=== PATIENT | male | born 1930 | race Caucasian/White ===

== ENCOUNTER 2017-04-03 13:27 | Observation (INO) | payer MEDICARE, OTHER ==
[2017-04-03 13:28] VITALS: BMI 26.6
--- NOTE | 2017-04-03 14:10 | ED PDOC ---
HPI: Abdomen Time Seen by Provider: 04/03/17 13:58 Chief Complaint (Nursing): Abnormal Labs Chief Complaint (Provider): Anemia History Per: Patient Additional Complaint(s): Rcik Upton is an 86 year old male, whose past medical history includes seizure disorder, hypertension, hyperlipidemia, anemia, GI bleed, ischemic heart disease, CVA, pacemaler, Type 2 diabetes, GERD, and Alzheimer's disease, who presents to the emergency department sent from group home for abnormal lab values today. Patient's blood work from earlier today showed patient is anemic, Hgb was 6.2. Sent with RX for transfusion of 3 units. HPI and ROS are limited due to patient's dementia. PMD: Dr. Jan Duenas Past Medical History Reviewed: Historical Data, Nursing Documentation, Vital Signs Vital Signs: Last Vital Signs Temp 98.4 F 04/03/17 14:02 Pulse 61 04/03/17 14:02 Resp 18 04/03/17 14:02 BP 122/64 04/03/17 14:02 Pulse Ox 99 04/03/17 15:26 - Medical History PMH: Anemia, CHF, COPD, Dementia, Depression, Diabetes, GERD, HTN, Hypercholesterolemia, Seizures, TIA - Surgical History Surgical History: Coronary Stent, Pacemaker - Family History Family History: States: Unknown Family Hx - Living Arrangements Living Arrangements: Group Home/Assist Lv[facility] - Immunization History Hx Tetanus Toxoid Vaccination: No (unknown) Hx Influenza Vaccination: No Hx Pneumococcal Vaccination: Yes - Home Medications Home Medications: Ambulatory Orders Medication Instructions Recorded Acetaminophen [Tylenol 325mg tab] 650 mg PO Q4H PRN 04/03/17 Acetaminophen [Tylenol 325mg tab] 650 mg PO Q4H PRN 04/03/17 Albuterol/Ipratropium [Duoneb 3 3 ml IH Q6H PRN 04/03/17 mg/0.5 mg (3 ml) UD] Atorvastatin [Lipitor] 80 mg PO HS 04/03/17 Carvedilol [Coreg] 25 mg PO Q12H 04/03/17 Cholecalciferol 400 Intl Units 400 unit PO DAILY 04/03/17 [Vitamin D 400 Intl Units Tab] Ciclopirox [Penlac] 1 appl TOP BID 04/03/17 Clopidogrel [Plavix] 75 mg PO DAILY 04/03/17 Cyproheptadine [Periactin] 8 mg PO TID 04/03/17 Dicyclomine [Bentyl] 10 mg PO DAILY 04/03/17 Enalapril Maleate [Vasotec] 20 mg PO Q12H 04/03/17 Ergocalciferol (Vitamin D2) 50,000 unit PO WE 04/03/17 [Vitamin D2] Ferrous Sulfate [Feosol] 325 mg PO DAILY 04/03/17 Insulin Aspart, Recombinant 1 - 6 unit SC ACHS 04/03/17 [Novolog] Lisinopril [Zestril] 10 mg PO DAILY 04/03/17 Mag Hydrox/Aluminum Hyd/Simeth 30 ml PO Q4H PRN 04/03/17 [Maalox Advanced Suspension] Magnesium Hydroxide [Milk Of 30 ml PO DAILY PRN 04/03/17 Magnesia] Mirtazapine [Remeron] 15 mg PO HS 04/03/17 Nitroglycerin [Nitrostat] 0.4 mg SL Q5MIN PRN 04/03/17 Pantoprazole [Protonix Inj] 40 mg IV DAILY 04/03/17 metFORMIN [glucOPHAGE] 250 mg PO BID 04/03/17 - Allergies Allergies/Adverse Reactions: Allergies Allergy/AdvReac Type Severity Reaction Status Date / Time No Known Allergies Allergy Verified 09/13/15 11:49 Review of Systems ROS Statement: Except As Marked, All Systems Reviewed And Found Negative Review Of Systems: ROS cannot be obtained secondary to pt's inabilty to answer questions. Physical Exam - Reviewed Nursing Documentation Reviewed: Yes Vital Signs Reviewed: Yes - Physical Exam Appears: Positive for: Non-toxic, No Acute Distress Head Exam: Positive for: ATRAUMATIC, NORMAL INSPECTION, NORMOCEPHALIC Skin: Positive for: Normal Color, Warm, DRY Eye Exam: Positive for: EOMI, Normal appearance, PERRL ENT: Positive for: Normal ENT Inspection Neck: Positive for: Normal, Painless ROM Cardiovascular/Chest: Positive for: Regular Rate, Rhythm Respiratory: Positive for: CNT, Normal Breath Sounds Gastrointestinal/Abdominal: Positive for: Bowel Sounds, Soft. Negative for: Tenderness Back: Positive for: Normal Inspection Rectal: Positive for: Stool Is Heme: (+) Extremity: Positive for: Normal ROM Neurologic/Psych: Positive for: Alert, Oriented - Laboratory Results Result Diagrams: 04/03/17 14:32 04/03/17 14:32 - ECG O2 Sat by Pulse Oximetry: 99 Medical Decision Making Medical Decision Making: IV access established and diagnostics ordered pt cam at bedside. Vitals stable on mill laborer. Orders written to transfuse Pt, aftr hegb resulted 6.6. Case discussed with LEONIDAS Krishnan from [facility] who agrees with plan at this time. Advised tele-obs Disposition - Clinical Impression Clinical Impression: Anemia - Patient ED Disposition Is Patient to be Admitted: Yes - Disposition Disposition Time: 15:33 Condition: STABLE - POA Present On Arrival: Blood Incompatibility
[2017-04-03 14:55] LABS: BASO % 0.4 % (0.0-2.0); EOS % 0.6 % (0.0-4.0); HEMOGLOBIN 6.6 g/dL (12.0-18.0); LYMPH # 0.9 K/uL (1.0-4.3); LYMPH % 14.6 % (20.0-40.0); MEAN CELL VOLUME 94.9 fl (80.0-94.0); MEAN CORPUSCULAR HEMOGLOBIN 30.4 pg (27.0-31.0); MEAN PLATELET VOLUME 9.4 fl (7.2-11.7); MONO # 0.3 K/uL (0.0-0.8); MONO % 5.2 % (0.0-10.0); NEUT % 79.2 % (50.0-75.0); RBC 2.18 Mil/uL (4.40-5.90); RED CELL DISTRIBUTION WIDTH 16.8 % (11.5-14.5); WHITE BLOOD COUNT 6.4 K/uL (4.8-10.8)
[2017-04-03 15:16] LABS: INR 1.1 (0.9-1.2); PARTIAL THROMBOPLASTIN TIME 34.3 Seconds (25.6-37.1); PROTHROMBIN TIME 12.8 Seconds (9.8-13.1)
[2017-04-03 15:28] LABS: ALB/GLOB RATIO 0.9 (1.0-2.1); ALBUMIN 2.3 g/dL (3.5-5.0); ALT/SGPT 30 U/L (21-72); AMYLASE 63 U/L (30-110); AST/SGOT 21 U/L (17-59); BLOOD UREA NITROGEN 44 mg/dl (9-20); CALCIUM 8.1 mg/dL (8.4-10.2); GFR AFRICAN-AMERICAN > 60; GFR NON-AFRICAN AMERICAN > 60; LIPASE 32 U/L (23-300)
[2017-04-03] MEDS ORDERED: Magnesium Hydroxide Susp 30 ml UD PO PRN (16:52)
[2017-04-03] MEDS ORDERED: Alum-Mag Hydrox-Simethicone Susp (30 mL) PO PRN (16:52)
[2017-04-03] MEDS ORDERED: Albuterol-Ipratrop 3 mg / 0.5 (3 ml) UD IH PRN (16:52)
[2017-04-03] MEDS ORDERED: CICLOPIROX APPL TOP SCH (17:00)
--- NOTE | 2017-04-03 18:56 | CARD ---
APPROVED REPORT EKG Measurement Heart [id number] <Conclusion> AV dual-paced rhythm Abnormal ECG
[2017-04-03] MEDS: Insulin Regular 100 units/ml SC SCH (22:09)
[2017-04-04] MEDS ORDERED: Cholecalciferol 400 Intl Units Tab PO SCH (09:00)
[2017-04-04] MEDS: Insulin Regular 100 units/ml SC SCH (09:09)
--- NOTE | 2017-04-04 10:12 | CP.PCM.HP ---
History of Present Illness - History of Present Illness History of Present Illness: pt admitted for severe anemia, hgb 6.6. pt was guiac positive in er and has h/ o same. pt is being worked up for this in [facility]. pt is non verbal but makes eye contact w/ this provider. per daughter pt states pt has been having productive cough and is requesting cxr. Present on Admission - Present on Admission Any Indicators Present on Admission: Yes History of Uncontrolled Diabetes: Yes Review of Systems - Gastrointestinal Gastrointestinal: As Per HPI, Hematochezia Past Patient History - Tetanus Immunizations Tetanus Immunization: Unknown - Past Medical History & Family History Past Medical History?: Yes - Past Social History Smoking Status: Never Smoked - CARDIAC Hx Cardiac Disorders: Yes Hx Hypertension: Yes Hx Pacemaker: Yes - PULMONARY Hx Respiratory Disorders: Yes Hx Chronic Obstructive Pulmonary Disease (COPD): Yes - NEUROLOGICAL Hx Neurological Disorder: Yes Hx Dementia: Yes Hx Seizures: Yes Hx Transient Ischemic Attacks (TIA): Yes - HEENT Hx HEENT Problems: No - RENAL Hx Chronic Kidney Disease: No - ENDOCRINE/METABOLIC Hx Endocrine Disorders: Yes Hx Diabetes Mellitus Type 2: Yes - HEMATOLOGICAL/ONCOLOGICAL Hx Blood Disorders: Yes Hx Anemia: Yes - INTEGUMENTARY Hx Dermatological Problems: Yes (SKIN GROWTH TO LEFT LOWER LIP) - MUSCULOSKELETAL/RHEUMATOLOGICAL Hx Musculoskeletal Disorders: Yes Hx Falls: Yes - GASTROINTESTINAL Hx Gastrointestinal Disorders: Yes Hx Gastroesophageal Reflux: Yes - GENITOURINARY/GYNECOLOGICAL Hx Genitourinary Disorders: Yes Hx Prostate Problems: Yes - PSYCHIATRIC Hx Psychophysiologic Disorder: Yes Hx Depression: Yes - SURGICAL HISTORY Hx Surgeries: Yes Hx Coronary Stent: Yes - ANESTHESIA Hx Anesthesia: Yes Hx Anesthesia Reactions: No Hx Malignant Hyperthermia: No Meds Allergies/Adverse Reactions: Allergies Allergy/AdvReac Type Severity Reaction Status Date / Time No Known Allergies Allergy Verified 09/13/15 11:49 Physical Exam - Constitutional Appears: Well, Non-toxic, No Acute Distress, Chronically Ill - Head Exam Head Exam: ATRAUMATIC, NORMAL INSPECTION, NORMOCEPHALIC - Eye Exam Eye Exam: EOMI, Normal appearance, PERRL Pupil Exam: NORMAL ACCOMODATION, PERRL - ENT Exam ENT Exam: Mucous Membranes Moist, Normal Exam - Neck Exam Neck exam: Positive for: Normal Inspection - Respiratory Exam Respiratory Exam: Clear to Auscultation Bilateral, NORMAL BREATHING PATTERN - Cardiovascular Exam Cardiovascular Exam: REGULAR RHYTHM, RRR, +S1, +S2 - GI/Abdominal Exam GI & Abdominal Exam: Normal Bowel Sounds, Soft. absent: Tenderness - Extremities Exam Extremities exam: Positive for: full ROM, normal capillary refill, normal inspection, pedal pulses present - Back Exam Back exam: NORMAL INSPECTION - Neurological Exam Neurological exam: Abnormal Gait, Alert, Altered, CN II-XII Intact, Reflexes Normal - Psychiatric Exam Psychiatric exam: Normal Affect, Normal Mood - Skin Skin Exam: Dry, Intact, Normal Color, Warm Results - Vital Signs Recent Vital Signs: Last Vital Signs Temp 98.5 F 04/04/17 08:00 Pulse 61 04/04/17 09:04 Resp 20 04/04/17 08:00 BP 177/79 H 04/04/17 09:04 Pulse Ox 98 04/04/17 08:00 - Labs Result Diagrams: 04/03/17 14:32 04/03/17 14:32 Labs: Laboratory Results - last 24 hr 04/03/17 04/04/17 21:54 05:38 POC Glucose (mg/dL) 139 H 106 Assessment & Plan (1) DVT prophylaxis Assessment and Plan: scd and ae hose Status: Acute (2) Anemia Assessment and Plan: 3 units prbc r/t gi bleed cbc 12p Status: Acute (3) Acute gastrointestinal hemorrhage Assessment and Plan: pt on ppi, further work up and gi f/u at [facility] hold palvix Status: Acute Decision To Admit - Pt Status Changed To: Hospital Disposition Of: Observation - . Bed Request Type: Telemetry Admitting Physician: Rai Valerio
[2017-04-04] MEDS ORDERED: Sodium Chloride 3% for Inhalation 4 ML VIAL.NEB IH PRN (11:01)
[2017-04-04 13:35] LABS: BASO % 0.3 % (0.0-2.0); EOS # 0.1 K/uL (0.0-0.7); EOS % 1.2 % (0.0-4.0); HEMOGLOBIN 10.6 g/dL (12.0-18.0); LYMPH % 14.7 % (20.0-40.0); MEAN CELL VOLUME 93.7 fl (80.0-94.0); MEAN CORPUSCULAR HEMOGLOBIN 30.2 pg (27.0-31.0); MEAN CORPUSCULAR HGB CONC 32.2 g/dL (33.0-37.0); MEAN PLATELET VOLUME 9.2 fl (7.2-11.7); MONO # 0.4 K/uL (0.0-0.8); MONO % 6.2 % (0.0-10.0); NEUT # 5.3 K/uL (1.8-7.0); NEUT % 77.6 % (50.0-75.0); NRBC % 0.1 % (0.0-0.0); RBC 3.51 Mil/uL (4.40-5.90); RED CELL DISTRIBUTION WIDTH 15.4 % (11.5-14.5); WHITE BLOOD COUNT 6.8 K/uL (4.8-10.8)
[2017-04-04 13:52] LABS: ALB/GLOB RATIO 0.9 (1.0-2.1); ALBUMIN 2.2 g/dL (3.5-5.0); ALT/SGPT 36 U/L (21-72); AST/SGOT 15 U/L (17-59); BLOOD UREA NITROGEN 35 mg/dl (9-20); CALCIUM 7.9 mg/dL (8.4-10.2); GFR AFRICAN-AMERICAN > 60; GFR NON-AFRICAN AMERICAN > 60
--- NOTE | 2017-04-04 14:39 | RAD ---
PROCEDURE: CHEST RADIOGRAPH, 1 VIEW HISTORY: cough COMPARISON: 12/13/2009 FINDINGS: LUNGS: Opacity at left base silhouetting left hemidiaphragm. This may represent infiltrate and/or pleural effusion. No right-sided opacity identified. PLEURA: Possible small left pleural effusion. CARDIOVASCULAR: Permanent pacemaker. Normal heart size. OSSEOUS STRUCTURES: No significant abnormalities. VISUALIZED UPPER ABDOMEN: Normal. OTHER FINDINGS: None. IMPRESSION: Left basilar opacity may reflect infiltrate and/or pleural effusion. Follow-up advised.
[2017-04-04] MEDS ORDERED: levoFLOXacin 750 MG TAB PO STA (14:53)
[2017-04-04] MEDS ORDERED: Ergocalciferol 50,000 Intl Units Cap PO SCH (16:52)
[2017-04-04 16:53] VITALS: BP 163/73; PULSE 60; RESP 18; TEMP 97.2; O2SAT 98
== END 2017-04-04 18:22 ==
LOC: H.ER 13:27 → H.ERHOLD 15:34 → H.TEL 20:41
PROVIDERS: ADMIT Family Medicine; ATTEND Family Medicine
DX: D50.0 Iron deficiency anemia secondary to blood loss (chronic) (principal); E11.9 Type 2 diabetes mellitus without complications; E78.00 Pure hypercholesterolemia, unspecified; E78.5 Hyperlipidemia, unspecified; F02.80 Dementia in other diseases classified elsewhere, unspecified severity, without behavioral disturbance, psychotic disturbance, mood disturbance, and anxiety; G30.9 Alzheimer's disease, unspecified; G40.909 Epilepsy, unspecified, not intractable, without status epilepticus; I11.0 Hypertensive heart disease with heart failure; I50.9 Heart failure, unspecified; J44.9 Chronic obstructive pulmonary disease, unspecified; K21.9 Gastro-esophageal reflux disease without esophagitis; K92.2 Gastrointestinal hemorrhage, unspecified; Z86.73 Personal history of transient ischemic attack (TIA), and cerebral infarction without residual deficits; I25.10 Atherosclerotic heart disease of native coronary artery without angina pectoris; F32.9 Major depressive disorder, single episode, unspecified; Z95.0 Presence of cardiac pacemaker
CPT/HCPCS: 36415; 36430; 71010; 80053; 82150; 82948; 83690; 84484; 85025; 85610; 85730; 86850; 86900; 86920; 93005; 99285; C9113; G0328; G0378; P9051

== ENCOUNTER 2017-05-15 19:09 | Inpatient (IN) | payer MEDICARE, MEDICAID ==
[2017-05-15 19:10] VITALS: BMI 26.6
[2017-05-15] MEDS ORDERED: Sodium Chloride 0.9% 1,000 ML IV STA (19:36)
[2017-05-15 20:27] LABS: BASO % 0.4 % (0.0-2.0); EOS # 0.2 K/uL (0.0-0.7); HEMATOCRIT 35.6 % (35.0-51.0); LYMPH # 0.4 K/uL (1.0-4.3); LYMPH % 5.9 % (20.0-40.0); MEAN CELL VOLUME 93.8 fl (80.0-94.0); MEAN CORPUSCULAR HEMOGLOBIN 29.9 pg (27.0-31.0); MEAN CORPUSCULAR HGB CONC 31.9 g/dL (33.0-37.0); MEAN PLATELET VOLUME 10.3 fl (7.2-11.7); MONO # 0.1 K/uL (0.0-0.8); NEUT # 6.4 K/uL (1.8-7.0); NEUT % 89.7 % (50.0-75.0); NRBC % 0.1 % (0.0-0.0); PLATELET COUNT 106 K/uL (130-400); RED CELL DISTRIBUTION WIDTH 17.8 % (11.5-14.5); WHITE BLOOD COUNT 7.2 K/uL (4.8-10.8)
[2017-05-15 20:36] LABS: ALB/GLOB RATIO 0.8 (1.0-2.1); ALKALINE PHOSPHATASE 106 U/L (38-126); ALT/SGPT 29 U/L (21-72); AST/SGOT 26 U/L (17-59); BLOOD UREA NITROGEN 34 mg/dl (9-20); CARBON DIOXIDE 30 mmol/L (22-30); CHLORIDE 121 mmol/L (98-107); GFR AFRICAN-AMERICAN > 60; GLUCOSE,RANDOM 106 mg/dL (75-110); SODIUM 154 mmol/l (132-148); TOTAL PROTEIN 5.5 G/DL (6.3-8.2)
[2017-05-15] MEDS ORDERED: Albuterol-Ipratrop 3 mg / 0.5 (3 ml) UD INH STA (20:44)
[2017-05-15 20:45] LABS: POTASSIUM 4.2 MMOL/L (3.6-5.0)
[2017-05-15 20:48] LABS: PARTIAL THROMBOPLASTIN TIME 34.2 Seconds (25.6-37.1)
[2017-05-15] MEDS ORDERED: Albuterol-Ipratrop 3 mg / 0.5 (3 ml) UD ONE (20:51)
--- NOTE | 2017-05-15 20:52 | ED PDOC ---
HPI: General Adult Time Seen by Provider: 05/15/17 19:25 Chief Complaint (Nursing): GI Problem Chief Complaint (Provider): Evaluation for PEG tube placement History Per: Family History/Exam Limitations: no limitations Current Symptoms Are (Timing): Still Present Additional History Per: Custodial Additional Complaint(s): Rick is an 86 y/o male, resident of halfway/rehab for 5+ years s/p stroke. Presents to the ED with daughter, who states patient has not been eating or drinking for the past 3 days. States he appears weaker, but at baseline mental status, which is awake and following simple commands. Clinical staff at rehab center sent patient to ED for evaluation of possible need for PEG -tube placement for nutrition. PMD: Dr. Sun Past Medical History Reviewed: Historical Data, Nursing Documentation, Vital Signs Vital Signs: Last Vital Signs Temp 99.6 F 05/15/17 19:12 Pulse 75 05/15/17 21:38 Resp 16 05/15/17 21:20 BP 121/66 05/15/17 21:20 Pulse Ox 96 05/15/17 21:38 - Medical History PMH: Anemia, CHF, COPD, Dementia, Depression, Diabetes, GERD, HTN, Hypercholesterolemia, Seizures, TIA Denies: Chronic Kidney Disease - Surgical History Surgical History: Coronary Stent, Pacemaker - Family History Family History: States: Unknown Family Hx - Immunization History Hx Tetanus Toxoid Vaccination: No (unknown) Hx Influenza Vaccination: No Hx Pneumococcal Vaccination: Yes - Home Medications Home Medications: Ambulatory Orders Medication Instructions Recorded Albuterol/Ipratropium [Duoneb 3 3 ml INH Q6 PRN 05/15/17 mg/0.5 mg (3 ml) UD] Atorvastatin Calcium [Atorvastatin 80 mg PO HS 05/15/17 Calcium] Carvedilol [Coreg] 25 mg PO BID 05/15/17 Cholecalciferol 400 Intl Units 1 tab PO DAILY 05/15/17 [Vitamin D 400 Intl Units Tab] Clopidogrel [Plavix] 75 mg PO DAILY 05/15/17 Cyproheptadine HCl [Cyproheptadine 8 mg PO TID PRN 05/15/17 HCl] Dicyclomine [Bentyl] 10 mg PO DAILY 05/15/17 Enalapril Maleate [Vasotec] 20 mg PO Q12 05/15/17 Ergocalciferol (Vitamin D2) 1 cap PO QWK 05/15/17 [Vitamin D2] Ferrous Sulfate [Ferosul] 5 ml PO DAILY 05/15/17 Insulin Aspart, Recombinant See Protocol SC ACHS 05/15/17 [Novolog] Magnesium Hydroxide [Milk of 30 ml PO DAILY PRN 05/15/17 Magnesia] Metformin HCl [Metformin HCl ER] 250 mg PO BID 05/15/17 Mirtazapine [Remeron] 15 mg PO HS 05/15/17 Nitroglycerin [Nitrostat] 0.4 mg SL Q5MIN PRN 05/15/17 Pantoprazole Sodium [Protonix] 40 mg PO DAILY 05/15/17 Promethazine [Phenergan Syrup] 5 ml PO Q6 PRN 05/15/17 Silver Sulfadiazine 1% [Silvadene 1 applic TOP BID 05/15/17 1%] amLODIPine [Norvasc] 5 mg PO DAILY 05/15/17 - Allergies Allergies/Adverse Reactions: Allergies Allergy/AdvReac Type Severity Reaction Status Date / Time No Known Allergies Allergy Verified 05/15/17 20:28 Review of Systems Review Of Systems: ROS cannot be obtained secondary to pt's inabilty to answer questions. Physical Exam - Reviewed Nursing Documentation Reviewed: Yes Vital Signs Reviewed: Yes - Physical Exam Appears: Positive for: No Acute Distress (but chronically ill appearing) Head Exam: Positive for: ATRAUMATIC, NORMAL INSPECTION, NORMOCEPHALIC Skin: Positive for: Normal Color, Warm, Dry ENT: Positive for: Other (Dry mucus membranes) Neck: Positive for: Normal, Painless ROM, Supple Cardiovascular/Chest: Positive for: Regular Rate, Rhythm. Negative for: Murmur Respiratory: Positive for: Other (Rhonchorous breath sounds) Gastrointestinal/Abdominal: Positive for: Normal Exam, Soft. Negative for: Tenderness Back: Positive for: Other (Small sacral decubitus ulcer) Extremity: Positive for: Swelling (Left hand with vile edema ), Other (Atrophied , frail, extremities with global weakness) Neurologic/Psych: Positive for: Motor/Sensory Deficits (global decrease in strength), Other (Awake, nonverbal) - Laboratory Results Result Diagrams: 05/15/17 20:23 05/15/17 20:23 - ECG ECG: Positive for: Interpreted By Me, Viewed By Me ECG Rhythm: Positive for: Atrial Fibrillation Rate: 75 O2 Sat by Pulse Oximetry: 96 (NC) Pulse Ox Interpretation: Normal Medical Decision Making Medical Decision Making: Time: 19:35 Initial Impression: Work up for dehydration and possible pneumonia given ausculatory findings Initial Plan: --Patient likely at risk for aspiration --EKG --B-type natriuretic peptide --CMP --Troponin I --CBC --PTT --Prothrombin time --CXR portable --Started on fluids --Pending reevaluation Time: 20:51 --CXR shows pacemaker with no focal infiltrates, similar to study from 04/04/17 --Blood work was reviewed, revealing marked hypernatremia, mild anemia, and elevated BUN --Fluids changed to Dextrose 5% 1/2NS given hypernatremia, evidence of dehydration --Patient will be admitted Inpatient Med/Surg for dehydration and hypernatremia , under the care of Dr. Rai Valerio --Clindamycin initiated given clinical exam for possible clinical pneumonia. Ivone Krishnan aware. Scribe Attestation: Documented by Lety Rome, acting as a scribe for Mauricio Escobedo III, DO Provider Scribe Attestation: All medical record entries made by the Scribe were at my direction and personally dictated by me. I have reviewed the chart and agree that the record accurately reflects my personal performance of the history, physical exam, medical decision making, and the department course for this patient. I have also personally directed, reviewed, and agree with the discharge instructions and disposition. Disposition - Clinical Impression Clinical Impression: Dehydration, Hypernatremia, Pneumonia - Patient ED Disposition Is Patient to be Admitted: Yes Counseled Patient/Family Regarding: Studies Performed, Diagnosis (d/w daughter) - Disposition Disposition Time: 20:30 Condition: GUARDED - Pt Status Changed To: Hospital Disposition Of: Inpatient - Admit Certification Admit to Inpatient:: After my assessment, the patient will require hospitalization for at least two midnights. This is because of the severity of symptoms shown, intensity of services needed, and/or the medical risk in this patient being treated as an outpatient. - POA Present On Arrival: Pressure Ulcer (sacral ulcer; L hand and arm edema)
[2017-05-15] MEDS ORDERED: Clindamycin 300 MG in Sodium Chloride 0.9% 100 ML IVPB STA (20:55)
[2017-05-15] MEDS ORDERED: Dextrose 5%/0.45% NS 1,000 ML IV SCH ×3 (21:00→23:30)
[2017-05-15 21:18] LABS: NEUTROPHIL 94 % (42-75); REACTIVE LYMPHOCYTES 1 % (0-0); TOTAL CELLS COUNTED 100
[2017-05-15 21:19] LABS: ACANTHOCYTES SLIGHT
[2017-05-15 21:20] LABS: LARGE PLATELETS PRESENT
[2017-05-15] MEDS ORDERED: Promethazine 6.25 MG/5 ML CUP PO PRN (21:58)
[2017-05-15] MEDS ORDERED: Albuterol-Ipratrop 3 mg / 0.5 (3 ml) UD INH PRN (21:58)
[2017-05-15] MEDS ORDERED: Magnesium Hydroxide Susp 30 ml UD PO PRN (21:58)
[2017-05-15] MEDS ORDERED: Ergocalciferol 50,000 Intl Units Cap PO SCH (22:00)
[2017-05-15] MEDS: Clindamycin 300 MG in Sodium Chloride 0.9% 100 ML IVPB SCH (23:16)
[2017-05-16 07:05] LABS: BASO % 0.4 % (0.0-2.0); EOS # 0.2 K/uL (0.0-0.7); EOS % 3.4 % (0.0-4.0); HEMATOCRIT 34.8 % (35.0-51.0); LYMPH # 0.6 K/uL (1.0-4.3); LYMPH % 9.4 % (20.0-40.0); MEAN CELL VOLUME 94.3 fl (80.0-94.0); MEAN CORPUSCULAR HEMOGLOBIN 29.6 pg (27.0-31.0); MEAN CORPUSCULAR HGB CONC 31.4 g/dL (33.0-37.0); MEAN PLATELET VOLUME 10.4 fl (7.2-11.7); MONO # 0.4 K/uL (0.0-0.8); MONO % 6.2 % (0.0-10.0); NEUT # 5.1 K/uL (1.8-7.0); NEUT % 80.6 % (50.0-75.0); NRBC % 0.1 % (0.0-0.0); RED CELL DISTRIBUTION WIDTH 17.8 % (11.5-14.5); WHITE BLOOD COUNT 6.3 K/uL (4.8-10.8)
[2017-05-16 07:35] LABS: ALB/GLOB RATIO 0.8 (1.0-2.1); ALKALINE PHOSPHATASE 103 U/L (38-126); ALT/SGPT 30 U/L (21-72); AST/SGOT 26 U/L (17-59); BILIRUBIN,TOTAL 0.8 mg/dl (0.2-1.3); BLOOD UREA NITROGEN 32 mg/dl (9-20); CALCIUM 7.8 mg/dL (8.4-10.2); CARBON DIOXIDE 27 mmol/L (22-30); CHLORIDE 123 mmol/L (98-107); GFR AFRICAN-AMERICAN > 60; GLUCOSE,RANDOM 110 mg/dL (75-110); POTASSIUM 3.8 MMOL/L (3.6-5.0); SODIUM 154 mmol/l (132-148); TOTAL PROTEIN 5.2 G/DL (6.3-8.2)
--- NOTE | 2017-05-16 08:34 | CP.PCM.HP ---
History of Present Illness - History of Present Illness History of Present Illness: pt admitted for poor po and possible peg placement. pt was started on clinda for cough, r/o aspiration pna. no f/c, n/v/d. non verbal. pt has polst onfile that is dnr/dni/dnh w/o tube feedings. daughter- healthcare rep wishes to rescind all of this as per er md. Present on Admission - Present on Admission Any Indicators Present on Admission: Yes History of Uncontrolled Diabetes: Yes Review of Systems - Review of Systems Systems not reviewed;Unavailable: Altered Mental Status - Respiratory Respiratory: As Per HPI, Cough Past Patient History - Tetanus Immunizations Tetanus Immunization: Unknown - Past Medical History & Family History Past Medical History?: Yes - Past Social History Smoking Status: Former Smoker - CARDIAC Hx Congestive Heart Failure: Yes Hx Hypercholesterolemia: Yes Hx Hypertension: Yes Hx Pacemaker: Yes - PULMONARY Hx Chronic Obstructive Pulmonary Disease (COPD): Yes - NEUROLOGICAL Hx Neurological Disorder: Yes - HEENT Hx HEENT Problems: No - RENAL Hx Chronic Kidney Disease: No - ENDOCRINE/METABOLIC Hx Endocrine Disorders: Yes - HEMATOLOGICAL/ONCOLOGICAL Hx Blood Disorders: Yes - INTEGUMENTARY Hx Dermatological Problems: Yes (SKIN GROWTH TO LEFT LOWER LIP) - MUSCULOSKELETAL/RHEUMATOLOGICAL Hx Falls: No - GASTROINTESTINAL Hx Gastrointestinal Disorders: Yes Hx Gastroesophageal Reflux: Yes - GENITOURINARY/GYNECOLOGICAL Hx Genitourinary Disorders: Yes Hx Prostate Problems: Yes - PSYCHIATRIC Hx Substance Use: No - SURGICAL HISTORY Hx Coronary Stent: Yes - ANESTHESIA Hx Anesthesia: Yes Hx Anesthesia Reactions: No Hx Malignant Hyperthermia: No Meds Allergies/Adverse Reactions: Allergies Allergy/AdvReac Type Severity Reaction Status Date / Time No Known Allergies Allergy Verified 05/15/17 20:28 Physical Exam - Constitutional Appears: Well, Non-toxic, No Acute Distress - Head Exam Head Exam: ATRAUMATIC, NORMAL INSPECTION, NORMOCEPHALIC - Eye Exam Eye Exam: EOMI, Normal appearance, PERRL Pupil Exam: NORMAL ACCOMODATION, PERRL - ENT Exam ENT Exam: Mucous Membranes Moist, Normal Exam - Neck Exam Neck exam: Positive for: Normal Inspection - Respiratory Exam Respiratory Exam: Rhonchi, NORMAL BREATHING PATTERN - Cardiovascular Exam Cardiovascular Exam: REGULAR RHYTHM, RRR, +S1, +S2 - GI/Abdominal Exam GI & Abdominal Exam: Normal Bowel Sounds, Soft. absent: Tenderness - Extremities Exam Extremities exam: Positive for: full ROM, normal capillary refill, normal inspection, pedal pulses present - Back Exam Back exam: NORMAL INSPECTION - Neurological Exam Neurological exam: Alert, CN II-XII Intact, Normal Gait, Oriented x3, Reflexes Normal - Psychiatric Exam Psychiatric exam: Normal Affect, Normal Mood - Skin Skin Exam: Dry, Intact, Normal Color, Warm Results - Vital Signs Recent Vital Signs: Last Vital Signs Temp 97.5 F L 05/16/17 00:34 Pulse 77 05/16/17 00:34 Resp 18 05/16/17 00:34 BP 136/73 05/16/17 00:34 Pulse Ox 96 05/16/17 00:34 - Labs Result Diagrams: 05/16/17 06:35 05/16/17 06:35 Labs: Laboratory Results - last 24 hr 05/16/17 05/16/17 05/16/17 05:30 06:35 06:35 WBC 6.3 RBC 3.70 L Hgb 10.9 L Hct 34.8 L MCV 94.3 H MCH 29.6 MCHC 31.4 L RDW 17.8 H Plt Count 94 L MPV 10.4 Neut % (Auto) 80.6 H Lymph % (Auto) 9.4 L [place] % (Auto) 6.2 Eos % (Auto) 3.4 Baso % (Auto) 0.4 Neut # 5.1 Lymph # 0.6 L [place] # 0.4 Eos # 0.2 Baso # 0.0 Sodium 154 H Potassium 3.8 Chloride 123 H Carbon Dioxide 27 Anion Gap 8 L BUN 32 H Creatinine 0.7 L Est GFR ( Amer) > 60 Est GFR (Non-Af Amer) > 60 POC Glucose (mg/dL) 135 H Random Glucose 110 Calcium 7.8 L Total Bilirubin 0.8 AST 26 ALT 30 Alkaline Phosphatase 103 Total Protein 5.2 L Albumin 2.2 L Globulin 2.9 Albumin/Globulin Ratio 0.8 L Assessment & Plan (1) Dehydration Assessment and Plan: d5 1/2 ns moniotr bw parenteral nutrition/peg tube once daughter consents Status: Acute (2) Hypernatremia Assessment and Plan: ivf, monitor cmp nephro prn Status: Acute (3) Pneumonia Assessment and Plan: ?? aspiration albuterol, phenergen clindamycin Status: Acute (4) DVT prophylaxis Assessment and Plan: scda nd ae h[place] saenznox postop Status: Acute Decision To Admit - Pt Status Changed To: Hospital Disposition Of: Inpatient - Admit Certification Admit to Inpatient:: After my assessment, the patient will require hospitalization for at least two midnights. This is because of the severity of symptoms shown, intensity of services needed, and/or the medical risk in this patient being treated as an outpatient. - . Bed Request Type: Med/Surg Admitting Physician: Rai Valerio
[2017-05-16] MEDS ORDERED: Silver Sulfadiazine 1% CREAM (50 gm) TOP SCH (09:00)
[2017-05-16] MEDS: Insulin Lispro (humaLOG) 100 Units/ml Inj SC SCH ×4 (09:02→22:11)
[2017-05-16] MEDS: Ferrous Sulfate 220 MG/5 ML PO SCH (09:06)
[2017-05-16] MEDS: Pantoprazole 40 mg EC Tab PO SCH (09:07)
[2017-05-16] MEDS: Cholecalciferol 400 Intl Units Tab PO SCH (09:07)
[2017-05-16] MEDS: Clindamycin 300 MG in Sodium Chloride 0.9% 100 ML IVPB SCH ×3 (09:28→21:45)
--- NOTE | 2017-05-16 09:28 | RAD ---
HISTORY: SOB COMPARISON: 04/04/2017 FINDINGS: LUNGS: The left fili diaphragmatic obliteration with blending opacity consistent with small left pleural effusion with or without mild atelectasis and or infiltrate here. The opacity is decreased and a left pleural effusion has likely decreased since prior exam No interval right hemithoracic pathology noted. PLEURA: No significant pleural effusion identified, no pneumothorax apparent. CARDIOVASCULAR: Mild cardiomegaly. Dual lead pacemaker in place as before OSSEOUS STRUCTURES: Bilateral shoulder arthrosis, thoracic spondylosis and generalized osteopenia VISUALIZED UPPER ABDOMEN: Normal. OTHER FINDINGS: None. IMPRESSION: Interval decrease left pleural effusion ; interval improved aeration left lung base. Small residua persisting
--- NOTE | 2017-05-16 23:04 | CARD ---
APPROVED REPORT EKG Measurement Heart [id number] <Conclusion> Atrial-sensed ventricular-paced rhythm Abnormal ECG
[2017-05-17 00:25] VITALS: O2SAT 100
[2017-05-17] MEDS: Clindamycin 300 MG in Sodium Chloride 0.9% 100 ML IVPB SCH ×4 (04:16→16:31)
[2017-05-17] MEDS: Insulin Lispro (humaLOG) 100 Units/ml Inj SC SCH ×3 (06:59→16:35)
--- NOTE | 2017-05-17 07:17 | PQF CHF ---
This form is a permanent part of the medical record 05/17/17 Roberto Krishnan APN Please clarify the type and acuity of heart failure in your notes. Documentation in the H&P under h template there is documentation of CHF: Yes. Patient is treated with Vasotec and Coreg. Clarification of your documentation is requested to better reflect the severity of illness and intensity of treatment of your patient. Indicators present [x] Diagnosis of a history of CHF [x] BNP > 200: Results: 763 [x] Imaging Finding of Pulmonary Edema /Pleural Effusions: :LEFT Pleural Effusion [] Fluid/Volume Overload [] Pitting edema [] Ejection Fraction < 40% (Indicative of Systolic Heart Failure) [] Ejection Fraction > 40% (Indicative of Diastolic Heart Failure) [] Dyspnea / Orthopenea / Paroxysmal Nocturnal Dyspnea [] Other: Location in the medical record that reflects the above clinical findings: [] Treatment Provided: [x] Coreg and Vasotec PHYSICIAN'S RESPONSE Based on your medical judgment of the clinical indicators outlined above, are you treating this patient for a known or suspected: [] Acute CHF [] Systolic [] Diastolic [] Combined [x] Chronic CHF [x] Systolic [] Diastolic [] Combined [] Acute on Chronic CHF []Systolic [] Diastolic [] Combined [] CHF due hypertension [] Acute systolic []Chronic systolic [] Acute/ chronic systolic [] Other, please indicate: [] [] If Unable to Determine, please check the box, sign and date. Present On Admission (POA) Indicator: [] Present at the time of admission [] Not present at the time of admission [] Clinically Undetermined In responding to this query, please exercise your independent professional judgment. The fact that a question is asked does not imply that any particular answer is desired or expected. Thank you for your clarification on this documentation. If you have any questions please call:ext [phone] * Thank you, Julia Sheppard RN CDMP MTDD
--- NOTE | 2017-05-17 07:30 | CP.PCM.PN ---
Subjective - Date & Time of Evaluation Date of Evaluation: 05/17/17 Time of Evaluation: 07:30 - Subjective Subjective: pt more awake, opens eyes but nonverbal. no f/c, n/v/d. pendign family decision on peg placement Objective - Vital Signs/Intake and Output Vital Signs (last 24 hours): Temp Pulse Resp BP Pulse Ox 97.4 F L 74 19 165/88 H 100 05/17/17 00:24 05/17/17 00:24 05/17/17 00:24 05/17/17 00:24 05/17/17 00:24 - Medications Medications: Current Medications Albuterol/Ipratropium (Duoneb 3 Mg/0.5 Mg (3 Ml) Ud) 3 ml INH Q6 PRN PRN Reason: SOB Amlodipine Besylate (Norvasc) 5 mg PO DAILY [facility] Last Admin: 05/16/17 09:06 Dose: 5 mg Atorvastatin Calcium (Lipitor) 80 mg PO HS [facility] Last Admin: 05/16/17 21:46 Dose: Not Given Carvedilol (Coreg) 25 mg PO BID [facility] Last Admin: 05/16/17 18:30 Dose: 25 mg Clopidogrel Bisulfate (Plavix) 75 mg PO DAILY [facility] Last Admin: 05/16/17 09:07 Dose: 75 mg Cyproheptadine HCl (Periactin) 8 mg PO TID PRN PRN Reason: Allergy symptoms Dicyclomine HCl (Bentyl) 10 mg PO DAILY [facility] Last Admin: 05/16/17 09:05 Dose: 10 mg Enalapril Maleate (Vasotec) 20 mg PO Q12 [facility] Last Admin: 05/16/17 21:47 Dose: Not Given Ergocalciferol (Drisdol 50,000 Intl Units Cap) 1 cap PO QWK [facility] Ferrous Sulfate (Ferrous Sulfate) 220 mg PO DAILY [facility] Last Admin: 05/16/17 09:06 Dose: 220 mg Clindamycin Phosphate 300 mg/ (Sodium Chloride) 102 mls @ 102 mls/hr IVPB Q6 [facility] Last Admin: 05/17/17 04:16 Dose: 102 mls/hr Insulin Human Lispro (Humalog) 0 units SC ACHS [facility] PRN Reason: Protocol Last Admin: 05/17/17 06:59 Dose: Not Given Magnesium Hydroxide (Milk Of Magnesia) 30 ml PO DAILY PRN PRN Reason: Constipation Metformin HCl (Glucophage) 250 mg PO BID [facility] Last Admin: 05/16/17 16:52 Dose: Not Given Mirtazapine (Remeron) 15 mg PO HS [facility] Last Admin: 05/16/17 21:47 Dose: Not Given Nitroglycerin (Nitrostat Sl Tab) 0.4 mg SL Q5MIN PRN PRN Reason: Other Pantoprazole Sodium (Protonix Ec Tab) 40 mg PO DAILY [facility] Last Admin: 05/16/17 09:07 Dose: 40 mg Promethazine HCl (Phenergan Syrup) 6.25 mg PO Q6 PRN PRN Reason: Cough Vitamin D (Vitamin D 400 Intl Units Tab) 400 intlu PO DAILY [facility] Last Admin: 05/16/17 09:07 Dose: 400 intlu - Labs Labs: 05/16/17 06:35 05/16/17 06:35 PT 11.8 Seconds (9.8-13.1) 05/15/17 20:23 INR 1.1 (0.9-1.2) 05/15/17 20:23 APTT 34.2 Seconds (25.6-37.1) 05/15/17 20:23 - Constitutional Appears: Non-toxic, No Acute Distress, Confused, Chronically Ill - Head Exam Head Exam: ATRAUMATIC, NORMAL INSPECTION, NORMOCEPHALIC - Eye Exam Eye Exam: EOMI, Normal appearance, PERRL Pupil Exam: NORMAL ACCOMODATION, PERRL - ENT Exam ENT Exam: Mucous Membranes Moist, Normal Exam - Neck Exam Neck Exam: Full ROM, Normal Inspection. absent: Lymphadenopathy - Respiratory Exam Respiratory Exam: Clear to Ausculation Bilateral, NORMAL BREATHING PATTERN - Cardiovascular Exam Cardiovascular Exam: REGULAR RHYTHM, RRR, +S1, +S2. absent: Murmur - GI/Abdominal Exam GI & Abdominal Exam: Soft, Normal Bowel Sounds. absent: Tenderness - Extremities Exam Extremities Exam: Full ROM, Normal Capillary Refill, Normal Inspection. absent : Joint Swelling, Pedal Edema - Back Exam Back Exam: NORMAL INSPECTION - Neurological Exam Neurological Exam: Alert, Awake, CN II-XII Intact, Normal Gait, Oriented x3 - Psychiatric Exam Psychiatric exam: Normal Affect, Normal Mood - Skin Skin Exam: Dry, Intact, Normal Color, Warm Assessment and Plan (1) Dehydration Status: Acute (2) Hypernatremia Status: Acute (3) Pneumonia Status: Acute (4) DVT prophylaxis Status: Acute - Assessment and Plan (Free Text) Assessment: (1) Dehydration Assessment and Plan: d5 1/2 ns moniotr bw parenteral nutrition/peg tube once daughter consents family still deciding about peg, will follow Status: Acute (2) Hypernatremia Assessment and Plan: ivf, monitor cmp nephro prn Status: Acute (3) Pneumonia Assessment and Plan: ?? aspiration albuterol, phenergen clindamycin Status: Acute (4) DVT prophylaxis Assessment and Plan: scda nd ae hose lovenox postop Status: Acute
[2017-05-17 08:36] VITALS: RESP 20
--- NOTE | 2017-05-17 08:38 | CON ---
DATE: 05/16/2017 REFERRING PHYSICIAN: Rai Valerio MD REASON FOR CONSULTATION: Dysphagia, failure to thrive. HISTORY OF PRESENT ILLNESS: This is a demented elderly 86-year-old male with a past medical history of dementia, who comes in essentially with what appears to be aspiration pneumonia and poor p.o. intake and request was made for PEG insertion. PAST MEDICAL HISTORY: As above. PAST SURGICAL HISTORY: As above. MEDICATIONS: Have been reviewed. REVIEW OF SYSTEMS: Unable to obtain because of the patient's baseline dementia. PHYSICAL EXAMINATION: VITAL SIGNS: In the hospital are grossly unremarkable. GENERAL: A pleasant elderly-appearing female, lying in bed comfortably, in no apparent distress. HEENT: Head is normocephalic and atraumatic. Eyes: Pupils equally reactive to light bilaterally, no conjunctival pallor or icterus. NECK: Supple. Normal range of motion. No lymphadenopathy appreciated. LUNGS: Coarse breath sounds bilaterally. HEART: S1 and S2. Regular rate and rhythm. No murmurs appreciated. ABDOMEN: Soft, nontender. There is some distention. Bowel sounds are present. No rebound. No guarding. RECTAL: Deferred. EXTREMITIES: Pulses felt bilaterally. SKIN: Warm, dry, and intact. NEUROLOGIC: A and O x1. LABORATORY DATA: All labs and relevant radiology have been reviewed. Labs are consistent with WBC 6.3, hemoglobin 10.8, hematocrit of 34.8, platelet count is 94. INR 1.1. Sodium 134. ASSESSMENT AND PLAN: This is an 86-year-old demented man with aspiration pneumonia. From a gastrointestinal standpoint, this is regarding percutaneous endoscopic gastrostomy tube placement. There are multiple issues here that need to be addressed, such as the hyponatremia for starters, aspiration pneumonia, and initiation or resumption of Plavix. For now, supportive care. We will discuss with the primary care team and family when available. Mauricio Koenig MD/ PhD NABILA
[2017-05-17] MEDS: Ferrous Sulfate 220 MG/5 ML PO SCH (08:49)
[2017-05-17] MEDS: Pantoprazole 40 mg EC Tab PO SCH (08:52)
[2017-05-17] MEDS: Cholecalciferol 400 Intl Units Tab PO SCH (08:52)
--- NOTE | 2017-05-17 09:48 | RAD ---
HISTORY: distention COMPARISON: No prior. FINDINGS: BOWEL: The bowel gas pattern is nonspecific. There is large amount of stool in the rectum. BONES: Within normal limits for the patient's age. OTHER FINDINGS: There are advanced atherosclerotic aortoiliac calcifications. IMPRESSION: Nonobstructive bowel gas pattern. Fecal stasis in the rectum.
[2017-05-17 10:54] LABS: BASO % 0.4 % (0.0-2.0); EOS # 0.3 K/uL (0.0-0.7); EOS % 5.4 % (0.0-4.0); HEMATOCRIT 31.4 % (35.0-51.0); LYMPH # 0.6 K/uL (1.0-4.3); LYMPH % 12.6 % (20.0-40.0); MEAN CELL VOLUME 92.3 fl (80.0-94.0); MEAN CORPUSCULAR HEMOGLOBIN 29.9 pg (27.0-31.0); MEAN CORPUSCULAR HGB CONC 32.4 g/dL (33.0-37.0); MEAN PLATELET VOLUME 10.7 fl (7.2-11.7); MONO # 0.4 K/uL (0.0-0.8); MONO % 7.9 % (0.0-10.0); NEUT # 3.5 K/uL (1.8-7.0); NEUT % 73.7 % (50.0-75.0); NRBC % 0.1 % (0.0-0.0); RED CELL DISTRIBUTION WIDTH 17.3 % (11.5-14.5); WHITE BLOOD COUNT 4.8 K/uL (4.8-10.8)
[2017-05-17 11:12] LABS: ALB/GLOB RATIO 0.7 (1.0-2.1); ALKALINE PHOSPHATASE 93 U/L (38-126); ALT/SGPT 34 U/L (21-72); AST/SGOT 34 U/L (17-59); BILIRUBIN,TOTAL 0.7 mg/dl (0.2-1.3); BLOOD UREA NITROGEN 27 mg/dl (9-20); CALCIUM 7.8 mg/dL (8.4-10.2); CARBON DIOXIDE 27 mmol/L (22-30); CHLORIDE 122 mmol/L (98-107); GFR AFRICAN-AMERICAN > 60; GLUCOSE,RANDOM 105 mg/dL (75-110); POTASSIUM 3.3 MMOL/L (3.6-5.0); SODIUM 154 mmol/l (132-148); TOTAL PROTEIN 4.7 G/DL (6.3-8.2)
[2017-05-17] MEDS ORDERED: Dextrose 5%/0.45% NS 1,000 ML IV SCH (11:45)
[2017-05-17] MEDS: Potassium CL 10mEq/100ml 100 ML IVPB SCH ×2 (12:43→13:50)
[2017-05-17 16:04] VITALS: BP 149/74; PULSE 61; TEMP 97.7
--- NOTE | 2017-05-22 15:00 | CP.PCM.DIS ---
Provider - Provider Date of Admission: 05/15/17 20:52 Attending physician: Rai Valerio MD Time Spent in preparation of Discharge (in minutes): 15 Diagnosis - Discharge Diagnosis (1) Dehydration Status: Acute (2) Hypernatremia Status: Acute (3) Pneumonia Status: Acute (4) DVT prophylaxis Status: Acute Hospital Course - Lab Results Lab Results: Most Recent Lab Values WBC 4.8 K/uL (4.8-10.8) 05/17/17 09:35 RBC 3.40 Mil/uL (4.40-5.90) L 05/17/17 09:35 Hgb 10.2 g/dL (12.0-18.0) L 05/17/17 09:35 Hct 31.4 % (35.0-51.0) L 05/17/17 09:35 MCV 92.3 fl (80.0-94.0) D 05/17/17 09:35 MCH 29.9 pg (27.0-31.0) 05/17/17 09:35 MCHC 32.4 g/dL (33.0-37.0) L 05/17/17 09:35 RDW 17.3 % (11.5-14.5) H 05/17/17 09:35 Plt Count 89 K/uL (130-400) L 05/17/17 09:35 MPV 10.7 fl (7.2-11.7) 05/17/17 09:35 Neut % (Auto) 73.7 % (50.0-75.0) 05/17/17 09:35 Lymph % (Auto) 12.6 % (20.0-40.0) L 05/17/17 09:35 Caroline % (Auto) 7.9 % (0.0-10.0) 05/17/17 09:35 Eos % (Auto) 5.4 % (0.0-4.0) H 05/17/17 09:35 Baso % (Auto) 0.4 % (0.0-2.0) 05/17/17 09:35 Neut # 3.5 K/uL (1.8-7.0) 05/17/17 09:35 Lymph # 0.6 K/uL (1.0-4.3) L 05/17/17 09:35 Caroline # 0.4 K/uL (0.0-0.8) 05/17/17 09:35 Eos # 0.3 K/uL (0.0-0.7) 05/17/17 09:35 Baso # 0.0 K/uL (0.0-0.2) 05/17/17 09:35 Neutrophils % (Manual) 94 % (42-75) H 05/15/17 20:23 Band Neutrophils % 1 % (0-2) 05/15/17 20:23 Lymphocytes % (Manual) 3 % (20-50) L 05/15/17 20:23 Reactive Lymphs % 1 % (0-0) H 05/15/17 20:23 Monocytes % (Manual) 1 % (0-10) 05/15/17 20:23 Platelet Estimate Markedly decreased (NORMAL) L 05/15/17 20:23 Large Platelets Present 05/15/17 20:23 Anisocytosis (manual) Slight 05/15/17 20:23 Helmet Cells Slight 05/15/17 20:23 Acanthocytes (Spur) Slight 05/15/17 20:23 Schistocytes Moderate 05/15/17 20:23 PT 11.8 Seconds (9.8-13.1) 05/15/17 20:23 INR 1.1 (0.9-1.2) 05/15/17 20:23 APTT 34.2 Seconds (25.6-37.1) 05/15/17 20:23 Sodium 154 mmol/l (132-148) H 05/17/17 09:35 Potassium 3.3 MMOL/L (3.6-5.0) L 05/17/17 09:35 Chloride 122 mmol/L (98-107) H 05/17/17 09:35 Carbon Dioxide 27 mmol/L (22-30) 05/17/17 09:35 Anion Gap 8 (10-20) L 05/17/17 09:35 BUN 27 mg/dl (9-20) H 05/17/17 09:35 Creatinine 0.7 mg/dL (0.8-1.5) L 05/17/17 09:35 Est GFR ( Amer) > 60 05/17/17 09:35 Est GFR (Non-Af Amer) > 60 05/17/17 09:35 POC Glucose (mg/dL) 164 mg/dL (65-110) H 05/17/17 15:42 Random Glucose 105 mg/dL (75-110) 05/17/17 09:35 Calcium 7.8 mg/dL (8.4-10.2) L 05/17/17 09:35 Total Bilirubin 0.7 mg/dl (0.2-1.3) 05/17/17 09:35 AST 34 U/L (17-59) 05/17/17 09:35 ALT 34 U/L (21-72) 05/17/17 09:35 Alkaline Phosphatase 93 U/L (38-126) 05/17/17 09:35 Troponin I 0.0270 ng/mL (0.00-0.120) 05/15/17 20:23 NT-Pro-B Natriuret Pep 763 pg/ml (0-900) 05/15/17 20:23 Total Protein 4.7 G/DL (6.3-8.2) L 05/17/17 09:35 Albumin 2.0 g/dL (3.5-5.0) L 05/17/17 09:35 Globulin 2.8 gm/dL (2.2-3.9) 05/17/17 09:35 Albumin/Globulin Ratio 0.7 (1.0-2.1) L 05/17/17 09:35 Discharge Exam - Head Exam Head Exam: ATRAUMATIC, NORMAL INSPECTION, NORMOCEPHALIC Discharge Plan - Discharge Medications Prescriptions: Clindamycin in 0.9 % Sod Chlor [Clindamycin 300 mg/50 ml-Ns] 300 mg IV Q6 #40 piggyback - Follow Up Plan Condition: GUARDED Disposition: TRANSF TO SNF Instructions: Dehydration (DC) Additional Instructions: pt unable to get peg at this time. to be dc back to [facility] for continued ivf and anbx until off plavix x 5-7 days. at that time will be for outpt peg placement. final dx-dehydartion, poor po, hypernatremia
== END 2017-05-17 21:24 | DRG 178 ==
LOC: H.ER 19:09 → H.ERHOLD 20:52 → H.MEDSURG1 22:10
PROVIDERS: ADMIT Family Medicine; ATTEND Family Medicine
DX: J69.0 Pneumonitis due to inhalation of food and vomit (principal); E87.0 Hyperosmolality and hypernatremia; F03.90 Unspecified dementia, unspecified severity, without behavioral disturbance, psychotic disturbance, mood disturbance, and anxiety; I11.0 Hypertensive heart disease with heart failure; I50.22 Chronic systolic (congestive) heart failure; E87.1 Hypo-osmolality and hyponatremia; R13.10 Dysphagia, unspecified; E11.9 Type 2 diabetes mellitus without complications; D64.9 Anemia, unspecified; E86.0 Dehydration; R56.9 Unspecified convulsions; F32.9 Major depressive disorder, single episode, unspecified; E78.00 Pure hypercholesterolemia, unspecified; J44.9 Chronic obstructive pulmonary disease, unspecified; K21.9 Gastro-esophageal reflux disease without esophagitis; R62.7 Adult failure to thrive; Z79.02 Long term (current) use of antithrombotics/antiplatelets; Z79.899 Other long term (current) drug therapy; Z86.73 Personal history of transient ischemic attack (TIA), and cerebral infarction without residual deficits; Z87.891 Personal history of nicotine dependence; Z95.0 Presence of cardiac pacemaker; Z95.5 Presence of coronary angioplasty implant and graft